=== PATIENT | female | born 1990 | race Asian ===

== ENCOUNTER 2017-12-08 20:21 | Emergency (ER) | payer MEDICAID ==
[~2017-12-08] VITALS: Ht 157.5 cm; Wt 119.3 kg
[2017-12-08] MEDS ORDERED: ONDANSETRON HCL 4 MG/2 ML VIAL ONE (20:38)
[2017-12-08] MEDS ORDERED: HYDROmorphone HCL 2 MG/ML VL ONE (20:38)
[2017-12-08] MEDS ORDERED: HYDROmorphone HCL 2 MG/ML VL IV ONE (20:45)
[2017-12-08] MEDS ORDERED: ONDANSETRON HCL 4 MG/2 ML VIAL IV ONE (20:45)
[2017-12-08] MEDS ORDERED: LORazepam 2MG/ML-1ML VIAL IV ONE (20:45)
[2017-12-08 20:55] LABS: Basophils # (auto) 0.1 uL; Basophils % (auto) 1.4 % (0.0-2.0); Eosinophils # (auto) 0.3 uL; Eosinophils % (auto) 3.7 % (0.0-7.0); Hemoglobin 15.3 g/dL (12.2-16.2); Lymphocytes # (auto) 2.9 uL; Lymphocytes % (auto) 34.6 % (10.0-50.0); Mean Corpuscular Hemoglobin 29.4 pg (28.0-32.0); Mean Corpuscular Hgb Conc. 33.2 g/dL (32.0-36.0); Mean Corpuscular Volume 88.7 fL (80.0-100.0); Monocytes % (auto) 11.8 % (0.0-12.0); Neutrophils % (auto) 48.5 % (37.0-80.0); Nucleated Red Blood Cells % 0.1 %; Platelet Count (auto) 231 10^3/uL (140-450); Red Blood Cells 5.19 10^6/uL (4.0-5.20); Red Cell Distribution Width 15.4 % (11.8-14.3); White Blood Cell 8.3 10^3/uL (4.4-10.8)
[2017-12-08] MEDS ORDERED: SODIUM CHLORIDE 0.9% 1,000 ML IV ONE (21:00)
[2017-12-08 21:13] LABS: INR 1.1 (0.9-1.15); Partial Thromboplastin Time 29.1 sec (22.64-33.71)
[2017-12-08 21:18] LABS: Alanine Aminotransferase 44 U/L (13-56); Albumin 3.3 g/dL (3.4-5.0); Alkaline Phosphatase 144 U/L (45-117); Anion Gap 9 (5-15); Aspartate Aminotransferase 33 U/L (15-37); BUN/Creatinine Ratio 18.1; Bilirubin, Total 1.1 mg/dL (0.2-1.0); Blood Urea Nitrogen 13 mg/dL (7-18); Calcium 8.7 mg/dL (8.5-10.1); Carbon Dioxide 23 mmol/L (21-32); Chloride 108 mmol/L (98-107); GFR African American 124 mL/min; GFR Non-African American 103 mL/min; Glucose 117 mg/dL (74-106); Potassium 3.7 mmol/L (3.5-5.1); Sodium 140 mmol/L (136-145); Total Protein 8.4 g/dL (6.4-8.2)
[2017-12-09 00:47] VITALS: BP 128/82
== END 2017-12-09 00:56 | disposition home or self-care (01) ==
LOC: ER 20:21 → EDBD 20:21 → ER 12-09 00:55
DX: I47.1 Supraventricular tachycardia (principal); I48.91 Unspecified atrial fibrillation; I50.9 Heart failure, unspecified; Z88.1 Allergy status to other antibiotic agents; Z88.8 Allergy status to other drugs, medicaments and biological substances
CPT/HCPCS: 36415; 71045; 80053; 84484; 84702; 85025; 85610; 85730; 92960; 93005; 94761; 96361; 96374; 96375; 99285; J1170; J2405

== ENCOUNTER 2018-11-13 19:26 | Emergency (ER) | payer MEDICAID ==
[~2018-11-13] VITALS: Ht 157.5 cm; Wt 126.1 kg
[~2018-11-13 19:26] MED LIST: AMIO200T33 PO; CARV6.25 PO; FURO20TA PO; LOSA25TA40 PO; MULT1CAP25 PO; POTA10TA51 PO; SOTA80TA PO; WARF2TAB55 PO
[2018-11-13 21:05] LABS: Urine Bacteria NONE SEEN /hpf (None Seen); Urine Blood 1+ /uL (Negative); Urine Mucus FEW (None Seen); Urine Specific Gravity 1.008 (1.001-1.035); Urine WBC 2 /hpf (0 - 5)
[2018-11-13 21:43] VITALS: BP 113/66
[2018-11-13 21:50] LABS: Basophils # (auto) 0.1 uL; Basophils % (auto) 1.3 % (0.0-2.0); Eosinophils # (auto) 0.2 uL; Eosinophils % (auto) 2.1 % (0.0-7.0); Hematocrit 43.6 % (36.0-46.0); Hemoglobin 14.5 g/dL (12.2-16.2); Lymphocytes # (auto) 2.4 uL; Lymphocytes % (auto) 30.9 % (10.0-50.0); Mean Corpuscular Hemoglobin 29.9 pg (28.0-32.0); Mean Corpuscular Hgb Conc. 33.2 g/dL (32.0-36.0); Mean Corpuscular Volume 90.1 fL (80.0-100.0); Monocytes # (auto) 0.8 uL; Monocytes % (auto) 10.6 % (0.0-12.0); Neutrophils # (auto) 4.3 uL; Neutrophils % (auto) 55.1 % (37.0-80.0); Nucleated Red Blood Cells % 0.1 %; Platelet Count (auto) 192 10^3/uL (140-450); Red Blood Cells 4.84 10^6/uL (4.0-5.20); Red Cell Distribution Width 14.6 % (11.8-14.3); White Blood Cell 7.9 10^3/uL (4.4-10.8)
[2018-11-13] MEDS ORDERED: ONDANSETRON HCL 4 MG/2 ML VIAL IV ONE (22:00)
[2018-11-13] MEDS ORDERED: MORPHINE SULFATE 4 MG/ML SYR/VIAL IV ONE (22:00)
[2018-11-13 22:04] LABS: Albumin 3.7 g/dL (3.4-5.0); Anion Gap 10 (5-15); Blood Urea Nitrogen 12 mg/dL (7-18); Calcium 8.4 mg/dL (8.5-10.1); Carbon Dioxide 24 mmol/L (21-32); Chloride 104 mmol/L (98-107); GFR African American 93 mL/min; GFR Non-African American 77 mL/min; Glucose 119 mg/dL (74-106); Potassium 3.6 mmol/L (3.5-5.1); Sodium 138 mmol/L (136-145)
[2018-11-13 22:09] LABS: Alanine Aminotransferase 28 U/L (13-56); Alkaline Phosphatase 135 U/L (45-117); Aspartate Aminotransferase 22 U/L (15-37); Bilirubin, Total 1.1 mg/dL (0.2-1.0); Total Protein 8.4 g/dL (6.4-8.2)
== END 2018-11-13 23:22 | disposition home or self-care (01) ==
LOC: ER 19:26
DX: R07.89 Other chest pain (principal); M79.18 Myalgia, other site; I48.91 Unspecified atrial fibrillation; I50.9 Heart failure, unspecified; Z90.49 Acquired absence of other specified parts of digestive tract; Z88.1 Allergy status to other antibiotic agents; Z88.6 Allergy status to analgesic agent; Z79.899 Other long term (current) drug therapy
CPT/HCPCS: 36415; 71045; 80053; 81001; 83880; 84484; 85025; 85379; 93005; 94761; 96374; 96375; 99284; J2270; J2405